=== PATIENT | female | born 1935 | race Caucasian/White ===

== ENCOUNTER 2019-09-08 12:35 | Outpatient (CLI) | payer MEDICARE, OTHER | END 2019-09-08 23:59 | disposition home or self-care (01) | LOC: LAB 12:35 | PROVIDERS: ATTEND Specialist | DX: Z01.812 Encounter for preprocedural laboratory examination (principal); Z11.59 Encounter for screening for other viral diseases | CPT/HCPCS: C9803; U0003 ==

== ENCOUNTER 2019-09-13 05:42 | Inpatient (IN) | payer MEDICARE, OTHER ==
[~2019-09-13] VITALS: Ht 162.6 cm; Wt 73.5 kg
[2019-09-13] VITALS (14 sets, daily range): BP systolic 107–135; BP diastolic 53–92
[2019-09-13] MEDS ORDERED: ANESTHESIA TRAY IN PYXIS 1 EA TRAY MC ONE (05:57)
[2019-09-13] MEDS ORDERED: BACITRACIN 50000 UNITS/VIAL ONE (06:01)
[2019-09-13] MEDS ORDERED: MIDAZOLAM HCL 2 MG/2ML VIAL ONE (06:10)
[2019-09-13] MEDS ORDERED: FENTANYL PF 250MCG/5ML AMPUL ONE (06:10)
--- NOTE | 2019-09-13 06:10 | NUR ---
RN NOTES/ACCU CHECK 94: FINGERSTICK GLUCOSE CHECK PERFORMED AND RESULT IS 94.
[2019-09-13] MEDS ORDERED: BUPIVACAINE 0.25% 75 MG/30 ML VIAL ONE (06:11)
[2019-09-13] MEDS ORDERED: HYDROMORPHONE INJ 2 MG/ML DISP.SYRIN ONE (06:11)
[2019-09-13] MEDS ORDERED: FAMOTIDINE/PF INJ 20 MG/2 ML VIAL IV ONE (06:12)
[2019-09-13] MEDS ORDERED: ROCURONIUM BROMIDE 50 MG/5 ML ONE (06:12)
--- NOTE | 2019-09-13 06:33 | NUR ---
RN NOTES/ARRIVAL/CONSENT/GENETICIST: ARRIVE IN THE UNIT AT 0605AM, PT FOR SURGERY AT 0630AM,ANESTHESIOLOGIST CAME AT 0515AM LOOKING FOR THE PT, BUT PT NOT HERE YET, NEY GARRETT CONTACTED ADMITTING TO FOLLOW UP REGARDING PT AND PAPER WORKS, BUT WAS TOLD WILL BRING ALL PAPER WORKS TOGETHER WITH PT ONCE PT ARRIVED. PT WAS THEN BROUGHT TO THE UNIT VIA WHEELCHAIR, PT FOR LEFT SHOULDER ARTHROPLASTY WITH DR URIARTE. A/O X4, ON RA, RESPIRATIONS EVEN AND UNLABORED. IV ACCESS SECURED ON RIGHT AC G20 BY NEY GARRETT, PATENT AND FLUSHING WELL, ON HL. CONSENT FOR PROCEDURE, ANESTHESIA, AND BLOOD SECURED AND SIGNED BY PT. CHECKLIST COMPLETED. VS TAKEN AND RECORDED.MRSA SWAB PERFORMED PER PROTOCOL. PT VERY PARTICULAR, AND WANTS TO SPEAK WITH DR URIARTE. DOESNT WANT TO DO INVENTORY OF BELONGINGS AT THIS TIME, STATED HER MAIN FOCUS IS THE SURGERY. WILL RELAY TO DAY RN TO PLEASE TAKE A LOOK OF BELONGINGS IN CASE THERE WILL BE MEDICATION ON HER BAGS. PT HAS LIST OF FACILITY SHE WOULD LIKE TO BE FOR DC, COPIED MADE AND ATTACHED TO CHART. AT 0615, OR STAFF CAME TO THE UNIT, PT WAS GENETICIST BY OR STAFF, LEFT THE UNIT AT 0630A,, WITH ORDER FOR STAT TYPE AND SCREEN, PIZZA DELIVERY IN THE UNIT WERE NOTIFIED OF ORDER AND INSTRUCTED TO GO TO OR FOR BLOOD DRAW STAT. WILL ENDORSE TO DAY RN FOR COMPLETION OF ADMISSION AND INVENTORY OF BELONGINGS.
[2019-09-13] MEDS ORDERED: TRANEXAMIC ACID 3,000 MG in SODIUM CHLORIDE IRRIG SOLUTION 70 ML IR ONE (07:00)
--- NOTE | 2019-09-13 07:15 | NUR ---
MS RN NOTE RECEIVED REPORT FROM [facility] SHIFT NURSE. PATIENT OFF UNIT, IN OR FOR SCHEDULED LEFT SHOULDER ARTHROPLASTY.
--- NOTE | 2019-09-13 07:46 | NUR ---
MS RN Notes Received the Left sling for patient to wear after she arrived from Left shoulder Arthroplasty[facility]
--- NOTE | 2019-09-13 07:49 | NUR ---
MS RN Notes Shoulder sling - [facility] Medical contact name is [facility] / [facility] MEDICAL office number: .
[2019-09-13] MEDS ORDERED: BUPIVACAINE 0.5 % PF 150 MG/30 ML VIAL ONE (08:25)
--- NOTE | 2019-09-13 09:18 | NUR ---
MS RN NOTES PATIENT STILL OFF UNIT, IN OR.
[2019-09-13] MEDS ORDERED: HYDROMORPHONE 1 MG/1 ML DISP.SYRIN ONE (09:38)
--- NOTE | 2019-09-13 10:35 | NUR ---
MS RN NOTES RECEIVED PATIENT FROM OR NURSE. ALERT AND ORIENTED X4. ORIENTED PATIENT TO ROOM, UNIT AND CALL LIGHT. HOB ELEVATED. ON 02 AT 2L/MIN JULITA WELL. NO SOB. DENIES ANY C/O PAIN NOR DISCOMFORT AT THIS TIME. RIGHT AC # 20 INTACT AND PATENT. PER HEYDI, ALL ORDER WERE VERIFIED AND FAXED TO PHARMACY. ALL BELONGINGS ACCOUNTED FOR. S/P LEFT SHOULDER ARTHROPLASTY WITH DRESSING IN PLACE. ICE PACKED APPLIED TO LEFT SHOULDER. PATIENT REFUSED TO HAVE BODY ASSESSMENT DONE DESPITE OF EXPLANATIONS. BED IN LOWEST POSITION, LOCKED. BED ALARM. CALL LIGHT WITHIN REACH. BSC PLACED AT SIDE. ABLE TO VERBALIZE NEEDS.
[2019-09-13] MEDS ORDERED: MENTHOL/CETYLPYRD (CEPACOL) 1 LOZ LOZENGE MM PRN (11:00)
[2019-09-13] MEDS ORDERED: SENNOSIDES 8.6 MG TABLET PO PRN (11:00)
[2019-09-13] MEDS ORDERED: DOCUSATE SODIUM 250 MG CAPSULE PO PRN (11:00)
[2019-09-13] MEDS ORDERED: MAGNESIUM HYDROXIDE 30 ML UDC PO PRN (11:00)
[2019-09-13] MEDS ORDERED: CLONIDINE HCL 0.1 MG TABLET PO PRN (11:00)
[2019-09-13] MEDS ORDERED: ACETAMINOPHEN 325 MG TABLET PO PRN (11:00)
[2019-09-13] MEDS ORDERED: diphenhydrAMINE HCL 25 MG CAPSULE PO PRN (11:00)
[2019-09-13] MEDS ORDERED: ZOLPIDEM TARTRATE 5 MG TABLET PO PRN (11:00)
[2019-09-13] MEDS ORDERED: NALOXONE HCL 0.4 MG/ML AMPUL IV PRN (11:00)
[2019-09-13] MEDS ORDERED: HYDROCODONE/APAP 5/325MG 1 EACH TABLET PO PRN (11:00)
[2019-09-13] MEDS ORDERED: ONDANSETRON HCL/PF 4 MG/2 ML VIAL IVP PRN (11:00)
[2019-09-13] MEDS ORDERED: MAG HYDROX/AL HYDROX/SIMETH 30 ML UDC PO PRN (11:00)
[2019-09-13] MEDS ORDERED: BISACODYL SUPP (10 MG) 10 MG/SUPP.RECT SUPP.RECT RC PRN ×2 (11:00)
--- NOTE | 2019-09-13 11:00 | NUR ---
MS RN NOTES PATIENT STATES SHE DOES NOT LIKE DILAUDID AND MORPHINE TO OR NURSE, HEYDI AND PRIMARY NURSE, NAHUM. BECAUSE IT GIVES HER UPSET STOMACH. PER REPORT HEYDI HAD GIVEN PATIENT DILAUDID 0.3MG AT 0948. DR. JOY HAD CALLED AT THE SAME TIME AND ALSO INFORMED HIM WELL PRIOR TO TRANSFERRING PHONE TO OR NURSE SINCE DR. JOY WANTS TO SPEAK WITH OR NURSE.
[2019-09-13] MEDS: IV D5/0.45 NACL 1,000 ML IV PRN ×2 (11:12→20:59)
[2019-09-13] MEDS ORDERED: CYCLOBENZAPRINE 10 MG TABLET PO PRN (11:30)
[2019-09-13] MEDS ORDERED: CARV6.252 PO (13:00)
[2019-09-13] MEDS ORDERED: ASPI-1169 PO (13:00)
[2019-09-13] MEDS ORDERED: EZET10TA16 PO (13:00)
[2019-09-13] MEDS ORDERED: CYAN-51 PO (13:00)
[2019-09-13] MEDS ORDERED: [UNRECOGNIZED DRUG - OTHER] PO (13:00)
[2019-09-13] MEDS ORDERED: UBID100C13 PO (13:00)
[2019-09-13] MEDS ORDERED: [UNRECOGNIZED DRUG - OTHER] PO (13:00)
[2019-09-13] MEDS ORDERED: PRAV20TA4 PO (13:00)
--- NOTE | 2019-09-13 14:34 | NUR ---
MS RN NOTES Patient is A/O x 4. Cooperative and calm. Had Left shoulder arthroplasty. No signs of distress or shortness of breath. IV R AC #20 G intact and patent infusing D5 1/2 saline. Bed is in low settings, side rails up for safety and call light is within reach, will monitor for pain. Will continue to monitor.
[2019-09-13] MEDS: ANCEF 1 GM/50 ML D5W IV SCH ×4 (15:04→22:03)
[2019-09-13] MEDS: HYDROCODONE/APAP 5/325MG 1 EACH TABLET PO PRN (16:45)
--- NOTE | 2019-09-13 19:00 | NUR ---
RN Closing Notes Patient is A/O x 4. Patient is cooperative and calm, Left Arthroplasty surgery was done this morning. C/O pain Carmel was given at 1545. Vitals are WNL. R AC #20 G is intact and patent infusing D5 1/2 Saline. Incentive spirometer was given to the patient to perform breathing exercise every 1 every hr x10. Bed settings is in low side rails up for safety and call light is within reach. Will endorse to the next shift.
--- NOTE | 2019-09-13 19:00 | NUR ---
MS RN NOTES DR. JOY SEEN AND EXAMINED PATIENT. INFORMED DR. JOY THAT PATIENT STATED SHE GETS UPSET STOMACH WHEN SHE GETS DILAUDID AND MORPHINE. ALSO INFORMED DR. JOY THAT PATIENT DID RECEIVED DILAUDID THIS AM GIVEN BY OR NURSE AFTER SURGERY. WHILE PATIENT WAS CONVERSING WITH DR. JOY, PATIENT ALSO INFORMED DR. JOY REGARDING EFFECTS OF DILAUDID AND MORPHINE AND WHAT CURRENT PAIN MEDICATIONS HAS HELPED HER. PER DR. JOY, IF PATIENT IS IN PAIN SHE HAS DILAUDID AND NORCO AND WILL MONITOR EFFECTS OF IT AND IF SHE GETS AN UPSET STOMACH WILL NOTIFY
--- NOTE | 2019-09-13 19:40 | NUR ---
MS RN OPEN NOTES PATIENT IS WATCHING TV IN BED. A/O X4. ON RA, NO SOB/ ACUTE RESPIRATORY DISTRESS NOTED. BED IS IN LOWEST LOCKED POSITION WITH SIDE RAILS UP X2, SEMI FOWLERS. CALL LIGHT IS WITHIN REACH. WILL CONTINUE TO MONITOR.
[2019-09-13] MEDS: FAMOTIDINE (20 MG) 20 MG TABLET PO SCH (20:11)
[2019-09-13] MEDS: HYDROMORPHONE 1 MG/1 ML DISP.SYRIN IV PRN (21:36)
[2019-09-14] MEDS: HYDROMORPHONE 1 MG/1 ML DISP.SYRIN IV PRN ×6 (02:58→20:48)
--- NOTE | 2019-09-14 06:16 | NUR ---
RN CLOSE NOTES PATIENT IS WATCHING TV IN BED. A/O X4. ON RA, NO SOB/ ACUTE RESPIRATORY DISTRESS NOTED. INCENTIVE SPIROMETER PRN. IV ON R AC #20 IS PATENT AND INTACT RUNNING D5 1/2NS@ 75MLS/HR. BED IS IN LOWEST LOCKED POSITION WITH SIDE RAILS UP X2, SEMI FOWLERS. CALL LIGHT IS WITHIN REACH. WILL ENDORSE TO AM NURSE.
[2019-09-14 06:28] LABS: BASOPHILS % (AUTO) 0.5 % (0.0-2.0); EOSINOPHILS % (AUTO) 0.9 % (0.0-6.0); HEMATOCRIT 41 % (33-45); HEMOGLOBIN 13.5 g/dL (11.5-14.8); LYMPHOCYTES # (AUTO) 1.9 /CMM (0.8-4.8); LYMPHOCYTES % (AUTO) 18.8 % (20.0-44.0); MEAN CORPUSCULAR HGB CONC 33 g/dl (31.0-36.0); MEAN CORPUSCULAR VOLUME 92 fL (82-100); MONOCYTES % (AUTO) 9.9 % (2.0-12.0); NEUTROPHILS # (AUTO) 6.9 /CMM (1.8-8.9); NEUTROPHILS % (AUTO) 69.9 % (43.0-81.0); PLATELET COUNT (AUTO) 215 /CMM (150-450); RED BLOOD CELL COUNT(AUTO) 4.45 MIL/uL (4.0-5.2); WHITE BLOOD COUNT (AUTO) 9.9 K/uL (4.3-11.0)
[2019-09-14 06:36] LABS: CREATININE 0.7 mg/dL (0.6-1.3); MAGNESIUM 1.7 mg/dL (1.8-2.4); PHOSPHORUS 3.2 mg/dL (2.5-4.9); POTASSIUM 3.8 mmol/L (3.5-5.1)
--- NOTE | 2019-09-14 07:49 | NUR ---
MS/RN OPENING NOTES RECEIVED PATIENT WATCHING TV IN BED. A/O X4. ON ROOM AIR, NO SOB/ ACUTE RESPIRATORY DISTRESS NOTED. IV ON R AC #20 WITH IV FLUID OF D5 1/2 NS1L @ 75MLS/HR. BED IS IN LOWEST LOCKED POSITION WITH SIDE RAILS UP X2, SEMI FOWLERS. CALL LIGHT IS WITHIN REACH. WILL CONTINUE TO MONITOR.
[2019-09-14 08:00] VITALS: BP 124/62
[2019-09-14] MEDS: FAMOTIDINE (20 MG) 20 MG TABLET PO SCH ×2 (08:27→20:49)
[2019-09-14] MEDS: DOCUSATE SODIUM 100 MG CAPSULE PO SCH ×2 (08:27→16:53)
[2019-09-14] MEDS: ASPIRIN 325 MG TABLET PO SCH (08:27)
[2019-09-14] MEDS ORDERED: MAGNESIUM OXIDE 400 MG TABLET PO ONE (08:30)
--- NOTE | 2019-09-14 09:54 | NUR ---
MS/RN NOTES ADVANCE DIET TOLERATED PER ZAHRA STAFFORD (UBALDO) NOTED AND CARRIED OUT.
--- NOTE | 2019-09-14 12:00 | NUR ---
MS/RN NOTES PATIENT IS TOLERATED FULL LIQUID DIET WELL NO COMPLAINED OF DISCOMFORT. DIET ADVANCE TO REGULAR. WILL CONTINUE TO MONITOR.
[2019-09-14] MEDS: IV D5/0.45 NACL 1,000 ML IV PRN (12:29)
[2019-09-14 16:00] VITALS: BP 97/54
--- NOTE | 2019-09-14 18:03 | NUR ---
MS/RN NOTES TELEPHONE ORDER BY DR. JOY D5 1/2 NS 1L TO DISCONTINUE NOTED AND CARRIED OUT.
--- NOTE | 2019-09-14 18:42 | NUR ---
MS/RN CLOSING NOTES PATIENT IS ON BED. A/O X4. ON ROOM AIR, NO APPARENT RESPIRATORY DISTRESS NOTED. PATIENT DENIES PAIN AT THIS TIME. IV ACCESS ON R AC #20 SL PATENT AND INTACT. SEEN AND EXAMINED BY MD WITH ORDERS MADE AND CARRIED OUT. COVID TEST WAS DONE AND SPECIMEN SENT TO LAB. ALL DUE MEDICATION WAS GIVEN. CHECKED PATIENT EVERY 2 HOURS. BED IN LOWEST AND LOCKED POSITION WITH SIDE RAILS UP X2, CALL LIGHT IS WITHIN REACH. WILL ENDORSED TO STAFF DEVELOPMENT COORDINATOR RN FOR AZAEL.
--- NOTE | 2019-09-14 20:06 | NUR ---
MS RN OPENING NOTES Patient received resting in bed a/o x4. Stable on RA with breathing even and unlabored, no sob noted. No signs of acute distress. Slight complaints of pain and discomfort. IV located on R AC #20 SL/ Left shoulder dressing noted and intact, dry and clean. Safety precautions in place with bed in lowest position, call light within reach, breaks on, side rails up. Will continue to monitor throughout the shift.
[2019-09-14 20:39] VITALS: BP 113/70
[2019-09-15] MEDS: HYDROMORPHONE 1 MG/1 ML DISP.SYRIN IV PRN ×2 (02:40→07:56)
--- NOTE | 2019-09-15 06:44 | NUR ---
MS RN CLOSING NOTES Patient resting in bed a/o x4. Stable on RA with breathing even and unlabored, no sob noted. No signs of acute distress. Slight complaints of pain and discomfort. IV located on R AC #20 SL. Left shoulder dressing noted and intact, dry and clean. Safety precautions in place with bed in lowest position, call light within reach, breaks on, side rails up. all needs attended to. Will endorse to oncoming shift about AZAEL.
[2019-09-15 08:00] VITALS: BP 120/64
[2019-09-15] MEDS: DOCUSATE SODIUM 100 MG CAPSULE PO SCH (08:30)
[2019-09-15] MEDS: ASPIRIN 325 MG TABLET PO SCH (08:30)
[2019-09-15] MEDS: FAMOTIDINE (20 MG) 20 MG TABLET PO SCH (08:30)
[2019-09-15] MEDS: HYDROCODONE/APAP 5/325MG 1 EACH TABLET PO PRN (13:06)
--- NOTE | 2019-09-15 15:19 | NUR ---
MS RN NOTES Called Lazaro Sandoval to give report with no answer. Left voice mail, waiting for call return.
--- NOTE | 2019-09-15 15:38 | NUR ---
MS RN NOTES NEY Iglesias from [facility] returned call at 1530. Report given.
--- NOTE | 2019-09-15 15:48 | NUR ---
Patient cleared for d/c by and . Patient awake alert and oriented x3 , ambulatory with assistance. Patient has left shoulder/arm slim on. Patient on room air tolerating well, VS are stable and within baseline. Patient received d/c instruction and education provided; patient verbalized understanding. Patient will f/u with dr. Jesus in one week. Call made to dr. Cardona regarding pain meds; per patient has her own pain med with her. Patient's home meds including pain meds picked up from pharmacy and returned to patient. 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 IV line removed and ID wrist band removed. Patient picked up by [facility] ambulance.
== END 2019-09-15 16:01 | DRG 483 ==
LOC: DS 05:42 → MED 06:01
PROVIDERS: ADMIT Nurse Practitioner Acute Care; ATTEND Nurse Practitioner Acute Care
PROC: 0RRK0JZ Replacement of Left Shoulder Joint with Synthetic Substitute, Open Approach (ICD-10-PCS; principal; 2019-09-13)
DX: M19.012 Primary osteoarthritis, left shoulder (principal); K57.32 Diverticulitis of large intestine without perforation or abscess without bleeding; I25.10 Atherosclerotic heart disease of native coronary artery without angina pectoris; Z95.5 Presence of coronary angioplasty implant and graft; E83.42 Hypomagnesemia; E66.9 Obesity, unspecified; Z68.27 Body mass index [BMI] 27.0-27.9, adult; E78.5 Hyperlipidemia, unspecified; I10 Essential (primary) hypertension; Z96.643 Presence of artificial hip joint, bilateral; Z88.0 Allergy status to penicillin; I25.2 Old myocardial infarction; Z86.12 Personal history of poliomyelitis; K44.9 Diaphragmatic hernia without obstruction or gangrene; E03.9 Hypothyroidism, unspecified; E78.00 Pure hypercholesterolemia, unspecified; I73.9 Peripheral vascular disease, unspecified
CPT/HCPCS: 36415; 80048-TC; 82962-TC; 83735-TC; 84100-TC; 85025-TC; 86850-TC; 87081-TC; 88305-TC; 88311-TC; A4565; C1713; C1776; G0378; J0690; J1170; J2250; J3010; J3490; J7042; J7060; U0003-CS

== ENCOUNTER 2022-01-29 10:12 | Outpatient (CLI) | payer MEDICARE, BC ==
[~2022-01-29 10:12] MED LIST: ASPI-1169 PO; CARV6.252 PO; CYAN-51 PO; EZET10TA16 PO; PRAV20TA4 PO; UBID100C13 PO; [UNRECOGNIZED DRUG - OTHER] PO; [UNRECOGNIZED DRUG - OTHER] PO
== END 2022-01-29 23:59 | disposition home or self-care (01) ==
LOC: LAB 10:12
PROVIDERS: ATTEND Specialist
DX: Z01.812 Encounter for preprocedural laboratory examination (principal); Z20.822 Contact with and (suspected) exposure to COVID-19
CPT/HCPCS: U0003; C9803

== ENCOUNTER 2022-02-04 05:33 | Inpatient (IN) | payer BC, MEDICARE ==
[~2022-02-04] VITALS: Ht 167.6 cm; Wt 51.3 kg
[~2022-02-04 05:33] MED LIST changes: +ANESTHESIA TRAY IN PYXIS 1 EA TRAY MC ONE
[2022-02-04] MEDS ORDERED: BUPIVACAINE 0.5 % PF 150 MG/30 ML VIAL ONE (05:54)
[2022-02-04] MEDS ORDERED: POLYMYXIN B SULFATE 500,000 UNITS ONE (05:54)
[2022-02-04 05:56] VITALS: BP 136/73
--- NOTE | 2022-02-04 06:15 | NUR ---
PATIENT IS A/O X 4, DAUGHTER AT BEDSIDE. ALL NECESSARY CONSENTS SIGNED. MRSA SWAB COLLECTED. AWAITING CXR AND LAB TO DRAW TS.
--- NOTE | 2022-02-04 06:29 | NUR ---
PATIENT LEFT THE UNIT DOWN TO OR. NOT IN ANY APPARENT DISTRESS.
[2022-02-04] MEDS ORDERED: TRANEXAMIC ACID 3,000 MG in SODIUM CHLORIDE IRRIG SOLUTION 70 ML IR ONE (06:30)
[2022-02-04] MEDS ORDERED: ROCURONIUM BROMIDE 50 MG/5 ML ONE (06:58)
[2022-02-04] MEDS ORDERED: SUCCINYLCHOLINE CHLORIDE 20 MG/ML VIAL ONE (06:58)
[2022-02-04] MEDS ORDERED: FENTANYL PF 100MCG/2ML AMPUL ONE ×2 (06:58→09:09)
--- NOTE | 2022-02-04 07:10 | NUR ---
RN OPENING NOTES PATIENT NOT ON UNIT, IS IN THE OR, RECEIVED ENDORSEMENT FROM MOLD CLEANING AND STORAGE SUPERVISOR. WILL AWAIT REPORT FROM OR.
[2022-02-04] MEDS ORDERED: HYDROMORPHONE 1 MG/1 ML DISP.SYRIN ONE (09:56)
[2022-02-04] MEDS ORDERED: diphenhydrAMINE HCL 25 MG CAPSULE PO PRN (10:00)
[2022-02-04] MEDS ORDERED: HYDROMORPHONE 1 MG/1 ML DISP.SYRIN SQ PRN (10:00)
[2022-02-04] MEDS ORDERED: ONDANSETRON HCL/PF 4 MG/2 ML VIAL IV PRN (10:00)
[2022-02-04] MEDS ORDERED: oxyCODONE IR immediate release 5 MG PO PRN ×2 (10:00)
[2022-02-04] MEDS ORDERED: HYDROMORPHONE MDV 30 MG in IV NS 0.9% 15 ML, PCA TOTAL VOLUME 1 BAG IV PRN ×3 (10:00)
[2022-02-04] MEDS ORDERED: HYDROMORPHONE 1 MG/1 ML DISP.SYRIN IV ONE ×2 (10:00→10:30)
[2022-02-04] MEDS ORDERED: MENTHOL/CETYLPYRD (CEPACOL) 1 LOZ LOZENGE PO PRN (10:00)
[2022-02-04] MEDS ORDERED: MAG HYDROX/AL HYDROX/SIMETH 30 ML UDC PO PRN (10:00)
[2022-02-04] MEDS: PANTOPRAZOLE 40 MG TABLET.DR PO SCH ×2 (10:30→23:05)
--- NOTE | 2022-02-04 11:00 | NUR ---
RN NOTES PATIENT RETURNED FROM OR, BESIDES REPORT GIVEN, V/S TAKEN AND STABLE. PATIENT ON 2L OF O2 VIA NC, NO S/S OF RESPIRATORY DISTRESS. PATIENT IS A/Ox4 ABLE TO MAKE NEEDS KNOWN. ON TELE MONITORING SHOWING SR RHYTHM, HR 64. NO C/O OF CHEST PAIN. PATIENT HAS RIGHT ARM SLING AND DRESSING IN PLACE. NO S/S OF DRAINAGE OR BLEEDING. WILL CONTINUE TO MONITOR.
[2022-02-04 12:00] VITALS: BP 122/47
[2022-02-04] MEDS ORDERED: LUTE40CA PO (12:31)
[2022-02-04] MEDS ORDERED: APIX2.5T PO (12:31)
[2022-02-04] MEDS ORDERED: PANT40TA49 PO (12:31)
[2022-02-04] MEDS ORDERED: AMLO-212 PO (12:31)
[2022-02-04] MEDS: IV D5/0.45 NACL 1,000 ML IV PRN ×2 (12:54→23:06)
[2022-02-04] MEDS ORDERED: KEY,NONCONTROL,TO KEEP IN PYXI 1 EA MC ONE (14:25)
[2022-02-04] MEDS: ANCEF 1 GM/50 ML D5W IV SCH ×4 (15:39→23:06)
[2022-02-04 16:00] VITALS: BP 111/75
--- NOTE | 2022-02-04 17:44 | NUR ---
RN NOTES PATIENT REFUSING TO WEAR TELE MONITORING PADS, PATIENT SAYS IT HURTS TOO MUCH.
--- NOTE | 2022-02-04 18:42 | NUR ---
PROCESSOR HELPER CLOSING NOTES PATIENT AWAKE IN BED, A/Ox2, EPISODES OF CONFUSION AND FORGETFULNESS. ON NC 2L, NO S/S OF RESPIRATORY DISTRESS OR DISCOMFORT. IV ACCESS L FA #22 SL. INTACT AND PATENT. ON TELE MONITORING BUT PATIENT BEGAN REFUSING TO WEAR TELE PADS AT 1730. NO C/O OF CHEST PAIN. PATIENT BEDSIDE COMMODE. PATIENT HAS R SHOULDER SURGICAL SITE. DRESSING AND SLING IN PLACE. ALL PRESCRIBED MEDICATION ADMINISTERED. SAFETY MEASURES MAINTAINED: BED LOCKED AND IN LOWEST POSITION, SIDE RAILS UP x2, CALL LIGHT WITHIN REACH, HOB ELEVATED. WILL ENDORSE TO NEXT SHIFT AZAEL.
--- NOTE | 2022-02-04 19:00 | NUR ---
PANEL WIRER OPENING NOTES RECEIVED PATIENT IN BED, AWAKE. ALERT AND OREINTATED, AO X 4. IV ACCESS IS AT L HAND, #2Og, , RUNNING D5 1/2 NS @ 125 ML/HR. HEADRIG SAWYER PUMP IS SETTING UP AT HER BED SIDE. TEACH PATIENT ON HOW TO USE THE HEADRIG SAWYER PUMP; PT VERBALIZED UNDERSTANDING AND DEMONSTRATED BACK. PT IS ON 2 LPM OXYGEN VIA NC, TOLERATED WELL. NO S/S OF RESPIRATORY DISTRESS OR DISCOMFORT . PATIENT SHOULD BE TELE MONITOR, HOWEVER, PATIENT REFUSED WEARING THE MONITOR LEADS. PATIENT USES BEDSIDE COMMODE, INSTRUCT PT TO CALL FOR ASSISTANCE WHEN SHE NEEDS TO USE IT. SAFETY MEASURES MAINTAINED: BED LOCKED AND IN LOWEST POSITION, SIDE RAILS UP x2, CALL LIGHT WITHIN REACH, HOB ELEVATED. WILL CONTINUE MONITORING PAITENT'S CONDITION DURING THE SHIFT.
--- NOTE | 2022-02-04 20:30 | NUR ---
MANAGER UTILIZATION NOTE RECEIVED PHONE CALL FROM PHARMACY, [facility], ASKED HOW MUCH SOLUTION STILL HAD IN CUSTOMER SERVICES MANAGER PUMP. CHECKED THE CUSTOMER SERVICES MANAGER PUMP, STILL HAS 30 CC OF SOLUTION IN THE BAD. CALLED BACK TO [facility], AND NOTIFIED HIM STILL HAD 30 ML OF SOLUTION IN THE CUSTOMER SERVICES MANAGER PUMP.
[2022-02-05] MEDS: HYDROMORPHONE 1 MG/1 ML DISP.SYRIN IV PRN ×3 (03:37→04:55)
[2022-02-05] MEDS: oxyCODONE IR immediate release 5 MG PO PRN ×3 (03:50→17:22)
--- NOTE | 2022-02-05 03:51 | NUR ---
ZIPPER JOINER NOTE PATIENT STATES SHE IS IN SEVERE PAIN. PREPARED DILAUDID 0.25 ML PER MD PRN ORDER. SHE REFUSED. IN STEAD, SHE SAID SHE WANT OXYCODONE. WASTED DILAUDID WITH NEY ESTRADA WITNESSED.
--- NOTE | 2022-02-05 07:14 | NUR ---
WEIGHT RECORDER NOTES PATIENT AWAKE IN BED, A/Ox3. SHE IS ON NC 2L, NO S/S OF RESPIRATORY DISTRESS OR DISCOMFORT. IV ACCESS L HAND #20 RUNNING D5 1/2NS@125 ML/HR. IV SITE IS INTACT AND PATENT. ON TELE MONITORING BUT PATIENT STILL REFUSE TO PUT THE LEADS ON HER. NO C/O OF CHEST PAIN. PATIENT USES BEDSIDE COMMODE. PATIENT'S R SHOULDER SURGICAL SITE. DRESSING AND SLING IN PLACE. ALL PRESCRIBED MEDICATION ADMINISTERED. SAFETY MEASURES MAINTAINED: BED LOCKED AND IN LOWEST POSITION, SIDE RAILS UP x2, CALL LIGHT WITHIN REACH, HOB ELEVATED. WILL ENDORSE TO NEXT SHIFT AZAEL.
--- NOTE | 2022-02-05 07:30 | NUR ---
RETORT UNLOADER NOTES PT IN BED, AWAKE, ALERT AND ORIENTED, NOT IN DISTRESS, EDUCATION GIVEN ON THE USE OF FISH HATCHERY WORKER PUMP, VERBALIZED UNDERSTANDING, STATED THAT THE OXY IR IS MORE EFFECTIVE WIT HER PAIN.
[2022-02-05 08:00] VITALS: BP 134/69
[2022-02-05] MEDS: APIXABAN 2.5 MG TABLET PO SCH ×2 (08:36→17:13)
[2022-02-05] MEDS ORDERED: ASPIRIN 325 MG TABLET PO SCH (09:00)
--- NOTE | 2022-02-05 11:31 | NUR ---
SANITARY INSPECTOR NOTES PT SEEN BY DR. JOY, RECEIVED ORDER TO DISCONTINUE DILAUDID WET PROCESS MILLER HEAD, NOTED AND CARRIED OUT.
[2022-02-05] MEDS ORDERED: KEY,NONCONTROL,TO KEEP IN PYXI 1 EA MC ONE (11:41)
[2022-02-05 12:00] VITALS: BP 113/56
[2022-02-05 16:00] VITALS: BP 106/76
--- NOTE | 2022-02-05 18:27 | NUR ---
BRAND SALES MANAGER NOTES PT IN BED, RESTING, NO COMPLAINT AT THIS TIME, RESPIRATIONS NORMAL, WITH EPISODES OF NONCOMPLIANCE WITH WEARING HER ARM SLING, ASSISTED TO BEDSIDE COMMODE NEEDED, PM MEDS GIVEN, NEEDS ATTENDED.
--- NOTE | 2022-02-05 19:00 | NUR ---
TISSUE RECOVERY TECHNICIAN OPENING NOTES RECEIVED PATIENT IN BED, AWAKE. ALERT AND ORIENTATED, AO X 4. IV ACCESS IS AT L HAND, #2Og, SL. PT IS ON RA, TOLERATED WELL. NO S/S OF RESPIRATORY DISTRESS OR DISCOMFORT. PATIENT SHOULD BE ON TELE MONITOR, HOWEVER, PATIENT REFUSED WEARING THE MONITOR LEADS. EDUCATED THE IMPORTANCE OF WEARING THE TELE MONITOR, PATIENT STILL REFUSED PUTTING THE LEADS ON HER. INSTRUCT PT TO CALL FOR ASSISTANCE WHEN SHE NEEDS HELP. SAFETY MEASURES MAINTAINED: BED LOCKED AND IN LOWEST POSITION, SIDE RAILS UP x 3, CALL LIGHT WITHIN REACH, HOB ELEVATED. WILL CONTINUE MONITORING PATENT'S CONDITION DURING THE SHIFT.
[2022-02-05 20:00] VITALS: BP 128/70
[2022-02-05] MEDS: CARVEDILOL 6.25 MG TABLET PO SCH (21:41)
[2022-02-05] MEDS: PANTOPRAZOLE 40 MG TABLET.DR PO SCH (21:41)
[2022-02-06] VITALS: BP 118/62
[2022-02-06] MEDS: oxyCODONE IR immediate release 5 MG PO PRN ×3 (01:04→18:56)
[2022-02-06 04:00] VITALS: BP 109/49
--- NOTE | 2022-02-06 07:33 | NUR ---
FAMILY PRESERVATION OFFICER CLOSING NOTES PATIENT IS IN BED, SLEEPING. IV ACCESS IS AT L HAND, #2Og, SL. PT IS ON RA, TOLERATED WELL. NO S/S OF RESPIRATORY DISTRESS OR DISCOMFORT. PATIENT SHOULD BE ON TELE MONITOR, HOWEVER, PATIENT REFUSED WEARING THE MONITOR LEADS. EDUCATED THE IMPORTANCE OF WEARING THE TELE MONITOR, PATIENT STILL REFUSED PUTTING THE LEADS ON HER. INSTRUCT PT TO CALL FOR ASSISTANCE WHEN SHE NEEDS HELP. SAFETY MEASURES MAINTAINED: BED LOCKED AND IN LOWEST POSITION, SIDE RAILS UP x 3, CALL LIGHT WITHIN REACH, HOB ELEVATED. WILL ENDORSE NEXT SHIFT NURSE FOR CONTINUING CARE OF THE PATIENT.
[2022-02-06 08:00] VITALS: BP 100/61
[2022-02-06] MEDS: EZETIMIBE 10 MG TABLET PO SCH (08:16)
[2022-02-06] MEDS: APIXABAN 2.5 MG TABLET PO SCH ×2 (08:17→18:58)
[2022-02-06] MEDS ORDERED: PANTOPRAZOLE 40 MG TABLET.DR PO SCH (09:00)
[2022-02-06] MEDS: CARVEDILOL 6.25 MG TABLET PO SCH ×2 (09:00→21:17)
[2022-02-06] MEDS ORDERED: Medication Not On Formulary EA (Ubidecarenone (Coq-10) 200 MG) PO SCH (09:00)
[2022-02-06] MEDS: AMLODIPINE BESYLATE 5 MG TABLET PO SCH (09:00)
[2022-02-06] MEDS ORDERED: OXYC5CAP18 PO (10:50)
[2022-02-06] MEDS ORDERED: PANT40TA49 PO (10:50)
[2022-02-06 11:00] LABS: HEMOGLOBIN 12.2 g/dL (11.5-14.8)
[2022-02-06 15:52] VITALS: BP 121/66
[2022-02-06] MEDS: ENSURE ENLIVE CHOC 237 ML CAN PO SCH (17:00)
[2022-02-06] MEDS: ATORVASTATIN 10 MG TABLET PO SCH (18:56)
--- NOTE | 2022-02-06 19:00 | NUR ---
GALLEY STRIPPER NOTES PT IN BED, AWAKE, ALERT AND ORIENTED, PAIN MEDICATION GIVEN ORDERED, NOT IN DISTRESS, KEPT CLEAN AND DRY, PM MEDS GIVEN ORDERED, ALL NEEDS ATTENDED.
--- NOTE | 2022-02-06 19:00 | NUR ---
AIR QUALITY CHEMIST OPENING NOTES RECEIVED PATIENT IN BED, AWAKE. ALERT AND ORIENTATED, AO X 4. IV ACCESS IS AT L HAND, #2Og, SL. PT IS ON 2 LPM OXYGEN VIA NC, TOLERATED WELL. NO S/S OF RESPIRATORY DISTRESS OR DISCOMFORT. PATIENT SHOULD BE ON TELE MONITOR, HOWEVER, PATIENT REFUSED WEARING THE MONITOR LEADS. EDUCATED THE IMPORTANCE OF WEARING THE TELE MONITOR, PATIENT STILL REFUSED PUTTING THE LEADS ON HER. INSTRUCT PT TO CALL FOR ASSISTANCE WHEN SHE NEEDS HELP. ACCORDING TO CHANGE SHIFT REPORT, PATIENT IS CLEARED FOR DISCHARGE AND WAITING FOR PLACEMENT. SAFETY MEASURES MAINTAINED: BED LOCKED AND IN LOW POSITION, SIDE RAILS UP x 3, CALL LIGHT WITHIN REACH, HOB ELEVATED. WILL CONTINUE MONITORING PATENT'S CONDITION DURING THE SHIFT.
[2022-02-06 20:00] VITALS: BP 110/66
[2022-02-06] MEDS: PANTOPRAZOLE 40 MG TABLET.DR PO SCH (21:17)
[2022-02-07] VITALS: BP 116/66
[2022-02-07] MEDS ORDERED: KEY,NONCONTROL,TO KEEP IN PYXI 1 EA MC ONE (03:57)
[2022-02-07 04:00] VITALS: BP 91/61
[2022-02-07] MEDS: oxyCODONE IR immediate release 5 MG PO PRN ×2 (04:02→23:17)
[2022-02-07] MEDS ORDERED: IV NS 0.9% 500 ML IV ONE (05:30)
--- NOTE | 2022-02-07 05:40 | NUR ---
SERVICE TECH/WELDER NOTE PATIENT IS ON EXTERNAL TELE MONITOR. AFTER CHANGING DRESSING FOR THE PATIENT IN ROOM 323-1, WAS TOLD BY TELE BEDSPREAD CUTTER, MARIA AND CHARGE NURSEFUAD, AND PATIENT HAS BEEN HAVING A-FIB FROM 0330 UNTIL NOW. HR WAS AROUND 110S AND 120S. CONTACTED SATELLITE TV TECHNICIAN INSTALLER MD. JENI EL, REPORTED PATIENT'S EKG PICTURE, PATIENT'S MEDICAL HISTORY, RECEIVED THE ORDER FOR 500 ML OF NS BOLUS INTRAVENOUSLY. REPORTED TO CHARGE NURSEFUAD. INPUT THE ORDER IN THE COMPUTER SYSTEM, AND CALLED THE EXTERNAL PHARMACY AT: [phone] TO VERIFY THE ORDER. ORDER WAS VERIFIED, AND IV BOLUS GIVEN TO THE PATIENT. PATIENT IS STABLE. 2 LPM OXYGEN PROVIDED VIA NC. PATIENT HAS NO S/S SOB OR DISTRESS. CHARGE NURSE AT PATIENT'S BEDSIDE, AND BEING NOTIFIED PATIENT'S CONDITION..
--- NOTE | 2022-02-07 06:15 | NUR ---
OCCUPATIONAL PSYCHOLOGIST NOTE PATIENT IS BEING SEEN BY TOPSTITCHER LOCKSTITCH, DOCTOR CELAYA.
--- NOTE | 2022-02-07 07:30 | NUR ---
GRAVEL ROOFER CLOSING NOTE PATIENT IS ON 2 LPM OXYGEN. NO S/S OF DISTRESS. AFTER BEING SEEN BY RUG CLEANER HELPER, DR. CELAYA, PATIENT EXPRESSED HER ANXIOUS ABOUT HER HEART CONDITION. PATIENT DENIES OF HAVING CHEST PAIN. NO SOB. REPORT GIVEN TO THE DAY SHIFT NURSE, ENDORSED THAT THE PATIENT SITUATION TO PROVIDE CONTINUE PATIENT CARE.
--- NOTE | 2022-02-07 07:40 | NUR ---
DIRECTOR OF SOFTWARE DEVELOPMENT OPENING NOTES RECEIVED PATIENT IN BED, AWAKE. ALERT AND ORIENTATED, AO X 4. IV ACCESS IS AT L HAND, #2Og, SL . PT IS ON 2 LPM OXYGEN VIA NC, TOLERATED WELL. NO SOB OR DISTRESS NOTED. NO C/O OF PAIN AND DISCOMFORT , ON TELE MONITOR WITH AFIB AND HR OF 113 . SAFETY MEASURES MAINTAINED: BED LOCKED AND IN LOW POSITION, SIDE RAILS UP x 3, CALL LIGHT WITHIN REACH, HOB ELEVATED. WILL CONTINUE MONITORING PATENT'S CONDITION DURING THE SHIFT.
[2022-02-07 08:00] VITALS: BP 96/67
[2022-02-07] MEDS: ENSURE ENLIVE CHOC 237 ML CAN PO SCH ×2 (08:33→17:18)
[2022-02-07] MEDS: CARVEDILOL 6.25 MG TABLET PO SCH ×2 (09:00→21:52)
[2022-02-07] MEDS: AMLODIPINE BESYLATE 5 MG TABLET PO SCH (09:00)
[2022-02-07] MEDS: EZETIMIBE 10 MG TABLET PO SCH (09:01)
[2022-02-07] MEDS: APIXABAN 2.5 MG TABLET PO SCH ×2 (09:03→17:36)
--- NOTE | 2022-02-07 09:30 | NUR ---
RN NOTES PATIENT NOTES WITH BP OF 96/67 AND HR OF 113 , AWARE AND WITH ORDER TO HOLD BP MEDS , START NS AT 125 ML PER HOUR HYDRATION , ORDER NOTED AND CARRIED OUT Addendum: 02/07/22 at 1447 by ERIK MENENDEZ RN CORRECTION FOR WORD NOTES - NOTED
[2022-02-07] MEDS ORDERED: IV NS 0.9% 1,000 ML IV SCH (10:00)
[2022-02-07 12:00] VITALS: BP 88/57
--- NOTE | 2022-02-07 12:00 | NUR ---
RN NOTES PATIENT C/O OF DYSURIA AND MD WITH ORDER OF U/A
--- NOTE | 2022-02-07 14:30 | NUR ---
RN NOTES WITH ORDER OF LABS AND PATIENT REFUSED FOR BLOOD DRAW , ALSO EXPLAINED PATIENT THAT WE NEED TO COLLECT URINE FOR URINALYSIS , PER PATIENT SHE DO IT BY HERSELF , URINE SPECIMEN BOTTLE GIVEN TO PATIENT
[2022-02-07 16:00] VITALS: BP 116/72
--- NOTE | 2022-02-07 16:00 | NUR ---
RN NOTES PATIENT OFFERED BLOOD DRAW 3X AND REFUSED , ALERT AND ORIENTED AND ABLE TO MAKE NEEDS KNOWN
[2022-02-07] MEDS: ATORVASTATIN 10 MG TABLET PO SCH (17:33)
[2022-02-07] MEDS: IV NS 0.9% 1,000 ML IV PRN (18:16)
--- NOTE | 2022-02-07 18:53 | NUR ---
ACCOUNTING MACHINE MECHANIC CLOSING NOTES PATIENT IN BED, AWAKE. ALERT AND ORIENTATED, AO X 4. IV ACCESS IS AT L HAND, #2Og, WITH NS @125ML /HOUR , BP IS NOW WITHIN NORMAL TO 116/72 . PT IS ON 2 LPM OXYGEN VIA NC, TOLERATED WELL. NO SOB OR DISTRESS NOTED. NO C/O OF PAIN AND DISCOMFORT , ALL DUE MEDS ORDERED GIVEN , ON TELE MONITOR WITH AFIB AND HR OF 125 . PATIENT WITH ORDER OF URINALYSIS AND OFFERED IN AND OUT CATHETERIZATION AND REFUSED , SPECIMEN CUP AT BEDSIDE PER PT SHE DO IT BY HERSELF , REFUSED LAB DRAW OFFERED 3X . SAFETY MEASURES MAINTAINED: BED LOCKED AND IN LOW POSITION, SIDE RAILS UP x 3, CALL LIGHT WITHIN REACH, HOB ELEVATED , WILL ENDORSED TO NEXT SHIFT .
--- NOTE | 2022-02-07 19:00 | NUR ---
GLASS WOOL BLANKET MACHINE FEEDER OPENING NOTES RECEIVED PT IN BED, AWAKE AT THIS TIME. A/O X4, ABLE TO MAKE NEEDS KNOWN. ON O2 2L VIA NC, WITH NO S/S OF SOB OR LABORED BREATHING. PT STATES WANTING TO MOVE TO ANOTHER ROOM DUE TO OTHER PT IN ROOM WEARING NO MASK AND COUGHING CONSISTENTLY. IV ACCESS L HAND #20G PATENT AND INTACT, RUNNING NS @ 125 ML/HR. SAFETY MEASURES IN PLACE: BED LOCKED AND IN LOW POSITION; SIDE RAILS UP X3; CALL LIGHT WITHIN REACH. WILL CONTINUE TO MONITOR AND ASSIST. Addendum: 02/07/22 at 2243 by ANTWAN VERGARA RN ON TELE MONITOR READING SR, HR 80.
[2022-02-07 20:00] VITALS: BP 123/59
[2022-02-07] MEDS: PANTOPRAZOLE 40 MG TABLET.DR PO SCH (21:51)
--- NOTE | 2022-02-07 23:25 | NUR ---
RN NOTES PT C/O PAIN LEVEL 10 BUT REFUSED DILAUDID. EDUCATED ABOUT RISKS/BENEFITS AND ADVOCATED FOR PROPER PAIN MANAGEMENT BUT STILL REFUSES. ADMINISTERED OXY IR 5MG INSTEAD.
[2022-02-08 01:12] LABS: BILIRUBIN,URINE NEGATIVE (NEGATIVE); COLOR,URINE YELLOW (YELLOW); LEUKOCYTE ESTERASE ,URINE NEGATIVE (NEGATIVE); NITRITE, URINE NEGATIVE (NEGATIVE); PH,URINE 5.5 (5.0-8.0); PROTEIN,URINE NEGATIVE (NEGATIVE); UGLUCOSE NEGATIVE (NEGATIVE); UROBILINOGEN,URINE 0.2 EU/dL (0.2)
[2022-02-08 01:21] LABS: BACTERIA,URINE Rare /HPF (None Seen); RBC,URINE 0-2 /HPF (0-2); SQUAMOUS EPITHELIAL CELL,UR Few /HPF (None Seen); WBC,URINE 0-2 /HPF (0-3)
[2022-02-08] MEDS: IV NS 0.9% 1,000 ML IV PRN (02:39)
--- NOTE | 2022-02-08 04:30 | NUR ---
RN NOTE PATIENT IS COMPLAINING OF SEVERE PAIN 10/10 ON HER R SHOULDER, CONTINUES TO REFUSE DILAUDID BECAUSE IT MAKES HER "SICK". OFFERED OXY IR BUT REFUSES TO TAKE IT UNLESS IT IS A HIGHER DOSAGE. COMMUNICATED SITUATION WITH ROUTER OPERATOR PIN MD JENI EL, ORDERED TO INCREASE OXY IR TO 10 MG PO. ORDER READ BACK AND CARRIED OUT.
[2022-02-08] MEDS: oxyCODONE IR immediate release 5 MG PO PRN ×2 (05:41→18:29)
[2022-02-08] MEDS: ENSURE ENLIVE CHOC 237 ML CAN PO SCH ×2 (07:45→16:58)
--- NOTE | 2022-02-08 07:45 | NUR ---
FISH CLEANER MACHINE TENDER CLOSING NOTES PT IN BED, AWAKE AT THIS TIME. A/O X4, ABLE TO MAKE NEEDS KNOWN. STABLE ON O2 2L VIA NC, WITH NO S/S OF SOB OR LABORED BREATHING. IV ACCESS L HAND #20G PATENT AND INTACT, RUNNING NS @ 125 ML/HR. ALL CARE PROVIDED AND ADMINISTERED MEDICATIONS TOLERATED WELL. SAFETY MEASURES MAINTAINED: BED LOCKED AND IN LOW POSITION; SIDE RAILS UP X3; CALL LIGHT WITHIN REACH. WILL ENDORSE AZAEL TO ENTOMOLOGY PROFESSOR NURSE.
[2022-02-08] MEDS: AMLODIPINE BESYLATE 5 MG TABLET PO SCH (09:00)
[2022-02-08 09:46] VITALS: BP 98/65
[2022-02-08] MEDS: APIXABAN 2.5 MG TABLET PO SCH (09:56)
[2022-02-08] MEDS: EZETIMIBE 10 MG TABLET PO SCH (09:56)
--- NOTE | 2022-02-08 10:53 | NUR ---
RN NOTE PATIENT REFUSED AM LABS, IV DRESSING CHANGE, AND AM VITALS. NOTIFIED CHARGE NURSE AND DR BEARDEN. WILL COLLECT COVID ANTIGEN TEST ORDERED. ENDORSED CONTINUITY OF CARE TO NEY GOLDBERG.
[2022-02-08] MEDS: ATORVASTATIN 10 MG TABLET PO SCH (16:58)
--- NOTE | 2022-02-08 19:40 | NUR ---
LIMB DRIVER OPENING NOTE RECEIVED PATIENT IN BED; AWAKE, ALERT AND ORIENTED X 4. BREATHING EVEN AND NONLABORED. ON O2 INHALATION @ 2 LPM VIA NASAL CANNULA; TOLERATING WELL. NOT IN ANY FORM OF RESPIRATORY DISTRESS. DENIES ANY PAIN OR DISCOMFORT AT THIS TIME. ON TELEMETRY MONITORING WHICH READS ATRIAL FIBRILLATION HR- 97 BPM. NO IV ACCESS. ABLE TO MAKE NEEDS KNOWN. SAFETY PRECAUTIONS IMPLEMENTED: CALL LIGHT AND TABLE WITHIN REACH, SIDE RAILS UP X 2, BED IN LOWEST LOCKED POSITION. WILL CONTINUE PLAN OF CARE.
[2022-02-08 20:00] VITALS: BP 132/64
[2022-02-08] MEDS: PANTOPRAZOLE 40 MG TABLET.DR PO SCH (22:12)
[2022-02-08] MEDS: CARVEDILOL 12.5 MG TABLET PO SCH (22:17)
[2022-02-08 23:53] VITALS: BP 113/60
[2022-02-09] VITALS: BP 113/60
[2022-02-09 04:00] VITALS: BP 126/66
[2022-02-09] MEDS: oxyCODONE IR immediate release 5 MG PO PRN ×3 (04:07→16:02)
--- NOTE | 2022-02-09 06:50 | NUR ---
COW TESTER CLOSING NOTE PATIENT IN BED; AWAKE, A/O X 4. BREATHING EQUAL AND UNLABORED. ON O2 INHALATION @ 2 LPM VIA NASAL CANNULA; TOLERATING WELL. NOT IN ANY FORM OF RESPIRATORY DISTRESS. DENIES ANY PAIN OR DISCOMFORT AT THIS TIME. NO IV ACCESS. ALL NEEDS ATTENDED. SAFETY PRECAUTIONS IN PLACE: CALL LIGHT AND TABLE WITHIN REACH, SIDE RAILS UP X 2, BED IN LOWEST LOCKED POSITION. ENDORSED TO MORNING SHIFT FOR AZAEL.
--- NOTE | 2022-02-09 07:05 | NUR ---
HOME HEALTH TRAVEL OT OPENING NOTES RECEIVED PATIENT AWAKE IN BED, A/Ox4, ABLE TO MAKE NEEDS KNOWN. ON ROOM AIR NO S/S OF RESPIRATORY DISTRESS. ON TELE MONITORING SHOWING A-FIB CONTROLLED HR 84. NO IV ACCES. CONTINENT PURWICK AND USES BEDSIDE COMMODE NEEDED. SKIN INTACT, SURGICAL SITE R SHOULDER DRESSING INTACT AND SLING IN PLACE. SAFETY MEASURES IN PLACE: BED LOCKED AND IN LOWEST POSITION, SIDE RAILS UPx2, CALL LIGHT WITHIN REACH, HOB ELEVATED. WILL CONTINUE TO MONITOR.
[2022-02-09 08:04] VITALS: BP 157/66
[2022-02-09] MEDS: EZETIMIBE 10 MG TABLET PO SCH (09:00)
[2022-02-09] MEDS: ENSURE ENLIVE CHOC 237 ML CAN PO SCH ×2 (09:09→17:04)
[2022-02-09] MEDS: AMLODIPINE BESYLATE 5 MG TABLET PO SCH (09:10)
[2022-02-09] MEDS: CARVEDILOL 12.5 MG TABLET PO SCH ×2 (09:10→20:55)
--- NOTE | 2022-02-09 11:46 | NUR ---
RN NOTES PATIENT COMPLAINED OF PAIN OF RIGHT SHOULDER, PRN OXYCODONE ADMINISTERED. WILL CONTINUE TO MONITOR.
[2022-02-09 12:00] VITALS: BP 137/71
[2022-02-09 15:45] VITALS: BP 129/61
--- NOTE | 2022-02-09 16:38 | NUR ---
RN NOTES PATIENT COMPLAINED OF PAIN, AND PRN OXY GIVEN. WILL CONTINUE TO MONITOR.
[2022-02-09] MEDS: ATORVASTATIN 10 MG TABLET PO SCH (18:00)
--- NOTE | 2022-02-09 18:40 | NUR ---
LEAD SYSTEMS ENGINEER CLOSING NOTES PATIENT AWAKE IN BED, A/Ox4, ABLE TO MAKE NEEDS KNOWN. STABLE ON ROOM AIR NO S/S OF RESPIRATORY DISTRESS. ON TELE MONITORING SHOWING SINUS RHYTHM HR 66. NO IV ACCES. CONTINENT PURWICK AND USES BEDSIDE COMMODE NEEDED. SKIN INTACT, SURGICAL SITE R SHOULDER DRESSING INTACT AND SLING IN PLACE. SAFETY MEASURES MAINTAINED: BED LOCKED AND IN LOWEST POSITION, SIDE RAILS UPx2, CALL LIGHT WITHIN REACH, HOB ELEVATED. WILL ENDORSE TO NEXT SHIFT ANY AZAEL.
[2022-02-09 20:00] VITALS: BP 136/67
--- NOTE | 2022-02-09 20:00 | NUR ---
RECEIVED PATIENT IN BED, ALERT/ORIENTED X4, STABLE ON 2LPM VIA NC, NO COMPLAIN OF PAIN, S/P RIGHT REVERSE TOTAL SHOULDER ARTHROPLASTY, SR ON THE TELE, RIGHT ARM ON SLING, DENIES NUMBNESS, BRISK CAPILLARY REFILL, PUREWICK ON PLACE, KEPT SAFE, WILL CONTINUE TO MONITOR.
[2022-02-09] MEDS: PANTOPRAZOLE 40 MG TABLET.DR PO SCH (21:01)
[2022-02-10 01:15] VITALS: BP 90/44
--- NOTE | 2022-02-10 03:40 | NUR ---
RN NOTE RECEIVED REPORT FROM NEY PERDOMO FOR AZAEL AT THIS TIME.
[2022-02-10 05:00] VITALS: BP 120/69
--- NOTE | 2022-02-10 06:40 | NUR ---
MEDICAL SECRETARY CLOSING NOTE PT RESTING IN BED, VERBALLY RESPONSIVE. PT ON O2 @ 2 LPM VIA NC, SATURATING 94%. NO SOB OR S/S OF RESPIRATORY DISTRESS. BREATHING EVEN AND UNLABORED. ON EXTERNAL CORPORATE DEVELOPMENT ANALYST READING A FIB 106 BPM. SAFETY PRECAUTIONS IN PLACE. BED IN LOWEST LOCKED POSITION, HOB ELEVATED, SIDE RAILS UP X2, AND CALL LIGHT AND TABLE WITHIN REACH. ALL NEEDS MET AT THIS TIME.
--- NOTE | 2022-02-10 07:08 | NUR ---
OIL FIELD TESTER OPENING NOTES RECEIVED PATIENT AWAKE IN BED, A/Ox4, ABLE TO MAKE NEEDS KNOWN. ON ROOM AIR NO S/S OF RESPIRATORY DISTRESS. ON TELE MONITORING SHOWING A-FIB HR 113. NO IV ACCES. CONTINENT PURWICK AND USES BEDSIDE COMMODE NEEDED. SKIN INTACT, SURGICAL SITE R SHOULDER DRESSING INTACT AND SLING IN PLACE. SAFETY MEASURES IN PLACE: BED LOCKED AND IN LOWEST POSITION, SIDE RAILS UPx2, CALL LIGHT WITHIN REACH, HOB ELEVATED. WILL CONTINUE TO MONITOR.
[2022-02-10] MEDS: ENSURE ENLIVE CHOC 237 ML CAN PO SCH (08:00)
[2022-02-10] MEDS: EZETIMIBE 10 MG TABLET PO SCH (09:00)
[2022-02-10] MEDS ORDERED: APIXABAN 2.5 MG TABLET PO SCH (09:30)
[2022-02-10 09:35] VITALS: BP 124/83
[2022-02-10] MEDS: AMLODIPINE BESYLATE 5 MG TABLET PO SCH (09:35)
[2022-02-10] MEDS: CARVEDILOL 12.5 MG TABLET PO SCH (09:35)
[2022-02-10] MEDS: oxyCODONE IR immediate release 5 MG PO PRN (09:35)
--- NOTE | 2022-02-10 10:00 | NUR ---
RN NOTES PATIENT COMPLAINED OF PAIN PRN OXYCODONE ADMINISTERED. WILL CONTINUE TO MONITOR.
--- NOTE | 2022-02-10 12:00 | NUR ---
CATHOLIC PRIEST NOTES PATIENT D/C HOME, A/Ox4, ABLE TO MAKE NEEDS KNOWN. ON ROOM AIR. NO S/S OF PAIN OR DISCOMFORT. NO C/O OF CARDIAC DISTRESS. TELE MONITORING REMOVED. HEALTH TEACHINGS AND DISCHARGE INSTRUCTIONS EXPLAINED TO PATIENT. PATIENT VERBALIZED UNDERSTANDING. ALL FORMS SIGNED AND COPIED, FILED INTO CHART. PATIENT REFUSED, PHOTOS TO BE TAKEN OF SURGICAL SITE. ID REMOVED. PATIENT LEFT UNIT WITH BELONGINGS VIA WHEELCHAIR, ACCOMPANIED BY YADIEL, JESSI @[id number]. CHARGE NURSE AND MD AWARE OF DISCHARGE.
[2022-02-10] MEDS ORDERED: CARV12.52 PO (12:09)
== END 2022-02-10 15:44 | DRG 483 ==
LOC: DS 05:33 → MED 05:35 → TELE 12:06
PROVIDERS: ADMIT Student in an Organized Health Care Education/Training Program; ATTEND Student in an Organized Health Care Education/Training Program
PROC: 0RRJ00Z Replacement of Right Shoulder Joint with Reverse Ball and Socket Synthetic Substitute, Open Approach (ICD-10-PCS; principal; 2022-02-04)
PROC: 0LS30ZZ Reposition Right Upper Arm Tendon, Open Approach (ICD-10-PCS; 2022-02-04)
DX: M12.811 Other specific arthropathies, not elsewhere classified, right shoulder (principal); K57.32 Diverticulitis of large intestine without perforation or abscess without bleeding; E44.1 Mild protein-calorie malnutrition; Z68.1 Body mass index [BMI] 19.9 or less, adult; Z20.822 Contact with and (suspected) exposure to COVID-19; I25.10 Atherosclerotic heart disease of native coronary artery without angina pectoris; E78.00 Pure hypercholesterolemia, unspecified; I35.0 Nonrheumatic aortic (valve) stenosis; I25.2 Old myocardial infarction; Z82.49 Family history of ischemic heart disease and other diseases of the circulatory system; Z96.641 Presence of right artificial hip joint; Z95.5 Presence of coronary angioplasty implant and graft; Z90.49 Acquired absence of other specified parts of digestive tract; Z86.12 Personal history of poliomyelitis; Z86.11 Personal history of tuberculosis; K44.9 Diaphragmatic hernia without obstruction or gangrene; I10 Essential (primary) hypertension; I70.0 Atherosclerosis of aorta; Z98.890 Other specified postprocedural states; I48.0 Paroxysmal atrial fibrillation; G89.29 Other chronic pain; Z79.899 Other long term (current) drug therapy; Z79.01 Long term (current) use of anticoagulants; I73.9 Peripheral vascular disease, unspecified; G89.18 Other acute postprocedural pain
CPT/HCPCS: 36415; 71045-TC; 81001; 85027-TC; 86850-TC; 87081-TC; 87086-TC; 87186-TC; 93307-TC; 93971-TC; 94799-TC; 97112-TC; 97530-TC; 97535-TC; A4217; A4565; A6253; C1776; G0378; J0330; J0690; J1100; J1170; J1885; J2405; J3010; J3490; J7030; J7040; J7060